=== PATIENT | male | born 2005 | race Caucasian/White ===

== ENCOUNTER 2024-02-27 09:21 | Emergency (ER) | payer BC, SELFPAY ==
--- NOTE | ~2024-02-27 | XR_ITS ---
EXAMINATION: XR LUMBOSACRAL SPINE CLINICAL INFORMATION: Left lower back pain status post heavy lifting COMPARISON: Lumbar spine radiograph from 11/15/2018 TECHNIQUE: Three views of the lumbosacral spine. FINDINGS: 5 nonrib-bearing lumbar-type vertebral bodies. No acute visible fracture or dislocation. Vertebral body heights and disc spaces are maintained. Posterior elements are intact. Paraspinal soft tissues are unremarkable. Visualized bowel gas is unremarkable. XR/XR lumbar spine 2-3V IMPRESSION: No acute visible fracture or dislocation. Electronically signed by: Fani Winters MD 02/27/2024 12:00 PM EDT
[2024-02-27 09:29] VITALS: BP 116/69; PULSE 72; RESP 18; TEMP 36.8; O2SAT 100; BMI 20.2
--- OUTSIDE RECORDS SUMMARY | 2024-02-27 09:39 | XMS_ITS | Continuity of Care Document ---
Author Organization [facility] Address [address] [place] [address]- Care Team Providers Care Director Of Content Marketing Name Role Phone Grayson Sarah MD Primary Care Physician Encounter [facility] [place] Date(s): 02/27/20 - 04/17/20 [facility] [address] [place] [id number] Attending Physician: Zuhair MIDDLETON, Esra Admitting Physician: Zuhair MIDDLETON, Esra Allergies, Adverse Reactions, Alerts Substance Reaction Severity Status amoxicillin Active chloral hydrate Active shellfish Active Reglan vomiting Active Contrast Dye Active Dust Active Immunizations Given and Recorded Vaccine Date Status Refusal Reason influenza virus vaccine, inactivated 1 04/11/13 Gi esteban influenza virus vaccine, inactivated 2 03/05/12 Gi esteban 1Admin Note: vis given 01/19/10 2Admin Note: vis given 01/19/10 Medications Aerochamber See Instructions, # 1 each, Maintenance, use with inhalers, 07/29/19 15:16:00 EST, Compound, 171.8,cm, 07/29/19 14:09:00 EST, Height, 57.9, kg, 07/29/19 14:09:00 EST, Dry Weight Start Date: 07/29/19 Status: Ordered Aerochamber See Instructions, # 1 each, Refills 1, Tot. Refills 1, use with inhalers, 05/11/09 16:16:30, [facility] [address] Start Date: 05/11/09 Status: Ordered albuterol 0.083% inhalation solution 3 mL, Neb, Every 4 hours, PRN as needed for wheezing and coughing, # 75 each, 1 Refills, Maintenance Start Date: 07/15/10 Status: Ordered cholecalciferol 2000 intl units oral tablet 1 tablet = 2,000 International_Units, By Mouth, Daily, Vit. D supplement. Take with with food., # 30 tablet, 3 Refills, Maintenance, 10/13/14 10:42:01, 1 tablet By Mouth Daily,Instr:Vit. D supplement. Take with with food. Start Date: 10/13/14 Status: Ordered Combivent Respimat CFC free 20 mcg-100 mcg/inh inhalation aerosol 2-6 puffs, Inhalation, Every 4 hours, PRN Cough, # 1 each, 2 Refills, Maintenance, 07/03/17 8:49:00, Aerosol, 2-6 puffs Inhalation Every 4 hours,PRN:Cough Start Date: 07/03/17 Status: Ordered Flonase 50 mcg/inh nasal spray 1 sprays, Nares, Both, 2 times a day, # 16 Gm, 2 Refills, Maintenance, 07/03/17 8:49:00, [place], 1 sprays Nares, Both 2 times a day Start Date: 07/03/17 Status: Ordered Flovent HFA 44 mcg/inh inhalation aerosol 2 puffs, Inhalation, 2 times a day, use with spacer chamber rinse mouth and throat after use, # 11 Gm, 3 Refills, Maintenance, 01/22/18 10:45:00 EDT, Aerosol Start Date: 01/22/18 Status: Ordered loratadine 10 mg oral tablet 10 mg, 1, tablet, By Mouth, Daily, # 30 tablet, Refills 2, Tot. Refills 2, Maintenance, 07/03/17 8:49:00, Route to Pharmacy Electronically, [id number], [facility]/pharmacy #[id number] Start Date: 07/03/17 Status: Ordered Magic mouthwash Magic mouthwash, See Instructions, PRN Cough, # 300 mL, Refills 0, Tot. Refills 0, Maintenance, Gargle and spit 10 mls 4 times daily, 06/22/17 10:02:00, Mix equal parts mylanta, benadryl and 1% lidocaine, Compound Start Date: 06/22/17 Status: Ordered ProAir HFA 90 mcg/inh inhalation aerosol with adapter 2 puffs, Inhalation, 4 times a day, PRN Wheezing/Shortness of Breath, use with spacer chamber as directed 15 minutes before exercise, # 1 each, 2 Refills, Maintenance, 04/17/14 14:50:18, Aerosol, 2 puffs Inhalation 4 times a day,PRN:Wheezing/Shortnes... Start Date: 04/17/14 Status: Ordered Symbicort 80mcg/4.5mcg Inhaler 2, puffs, Inhalation, 2 times a day, # 1 each, Refills 2, Tot. Refills 2, Maintenance, 07/29/19 15:15:00 EST, Aerosol, Route to Pharmacy Electronically, [id number], [facility]/pharmacy #[id number], 171.8, cm, 07/29/19 14:09:00 EST, Height... Start Date: 07/29/19 Status: Ordered Vitamin D3 400 intl units oral capsule 1 capsule = 400 International_Units, By Mouth, Daily, # 30 capsule, 3 Refills, Maintenance, 08/16/17 9:14:00 Start Date: 08/16/17 Status: Ordered Problem List Condition Effective Dates Status Health Status Inform ant CFTR-related metabolic syndr ome (CRMS)(Confirmed) Active Cough(Confirmed) Active Gastro-esophageal reflux disease(Confirmed) Active Generalized abdominal pain(Confirmed) Active Tremor(Confirmed) Active Social History Social History Type Response Smoking Status Never smoker; Tobacc o user in household: No entered on: 07/03/17 Sex
--- OUTSIDE RECORDS SUMMARY | 2024-02-27 09:39 | XMS_ITS | Continuity of Care Document ---
Author Organization [facility] Address [address] [place] [address]- Care Team Providers Care Desizing Machine Operator Head End Name Role Phone Grayson Sarah MD Primary Care Physician Encounter [facility] Date(s): 07/29/19 - 07/29/[address] [address]- [facility] Attending Physician: Not on Staff, Attending MD Allergies, Adverse Reactions, Alerts Substance Reaction Severity [...] 16 Gm, 2 Refills, Maintenance, 07/03/17 8:49:00, [place], 1 sprays Nares, Both 2 times a [...] Maintenance, 07/03/17 8:49:00, Route to Pharmacy Electronically, [id number], [facility]/pharmacy #[id number] Start Date: 07/03/17 Status: Ordered Magic [...] 15:15:00 EST, Aerosol, Route to Pharmacy Electronically, [id number], [facility]/pharmacy #[id number], 171.8, cm, 07/29/19 14:09:00 EST, Height... [...]
--- OUTSIDE RECORDS SUMMARY | 2024-02-27 09:39 | XMS_ITS | Continuity of Care Document ---
Author Organization [facility] Address [address] [place] [address]- Care Team Providers Care Director Of Sports Medicine Name Role Phone Grayson Sarah MD Primary Care Physician Encounter [facility] Date(s): 09/17/20 - 10/17/20 [facility] [address] [place] [address]- Allergies, Adverse Reactions, Alerts Substance Reaction Severity [...] Medications Aerochamber See Instructions, # 1 each, Refills 1, Tot. Refills 1, use with inhalers, 05/11/09 16:16:30, [facility] Start Date: 05/11/09 Status: Ordered Aerochamber See Instructions, # 1 each, Maintenance, use with inhalers, 07/29/19 15:16:00 EST, Compound, 171.8,cm, 07/29/19 14:09:00 EST, Height, 57.9, kg, 07/29/19 14:09:00 EST, Dry Weight Start Date: 07/29/19 Status: Ordered albuterol 0.083% inhalation solution 3 [...] 16 Gm, 2 Refills, Maintenance, 07/03/17 8:49:00, [place], 1 sprays Nares, Both 2 times a [...] Maintenance, 07/03/17 8:49:00, Route to Pharmacy Electronically, [id number], [facility]/pharmacy #[id number] Start Date: 07/03/17 Status: Ordered Magic mouthwash [...] 15:15:00 EST, Aerosol, Route to Pharmacy Electronically, [id number], [facility]/pharmacy #[id number], 171.8, cm, 07/29/19 14:09:00 EST, Height... [...]
--- OUTSIDE RECORDS SUMMARY | 2024-02-27 09:39 | XMS_ITS | Continuity of Care Document ---
Author Organization [facility] Address [address] [place] [address]- Care Team Providers Care Home Theater Installer Name Role Phone Grayson Sarah MD Primary Care Physician Encounter [facility] Date(s): 09/29/20 - 01/27/21 [facility] [address] [place] [address]- Attending Physician: Dakota Fofana MD Admitting Physician: Dakota Fofana MD Allergies, Adverse Reactions, Alerts Substance Reaction [...] 16 Gm, 2 Refills, Maintenance, 07/03/17 8:49:00, [place], 1 sprays Nares, Both 2 times a [...] Maintenance, 07/03/17 8:49:00, Route to Pharmacy Electronically, [id number], [facility]/pharmacy #[id number] Start Date: 07/03/17 Status: Ordered Magic [...] 15:15:00 EST, Aerosol, Route to Pharmacy Electronically, [id number], [facility]/pharmacy #[id number], 171.8, cm, 07/29/19 14:09:00 EST, Height... [...]
--- OUTSIDE RECORDS SUMMARY | 2024-02-27 09:39 | XMS_ITS | Continuity of Care Document ---
Author Organization [facility] Address [address] [place] [address]- Care Team Providers Care Bottle Feeder Name Role Phone Grayson Sarah MD Primary Care Physician Encounter [facility] [place] Date(s): 11/07/19 - 11/14/19 [facility] [address] [place] [address]- [facility] Attending Physician: Zuhair MIDDLETON, Esra Allergies, Adverse Reactions, [...] 16 Gm, 2 Refills, Maintenance, 07/03/17 8:49:00, [place], 1 sprays Nares, Both 2 times a [...] Maintenance, 07/03/17 8:49:00, Route to Pharmacy Electronically, [id number], [facility]/pharmacy #[id number] Start Date: 07/03/17 Status: Ordered Magic [...] 15:15:00 EST, Aerosol, Route to Pharmacy Electronically, [id number], [facility]/pharmacy #[id number], 171.8, cm, 07/29/19 14:09:00 EST, Height... [...]
--- OUTSIDE RECORDS SUMMARY | 2024-02-27 09:39 | XMS_ITS | Continuity of Care Document ---
Author Organization [facility] Address [address] [place] [address]- Care Team Providers Care Flexo Press Operator Name Role Phone Grayson Sarah MD Primary Care Physician [place] [facility] [place] - 08/05/19 [facility] [address] [place] [address] [facility] Attending Physician: Not on Staff, Attending MD Referring Physician: Grayson Sarah MD Allergies, Adverse Reactions, Alerts Substance Reaction [...] 16 Gm, 2 Refills, Maintenance, 07/03/17 8:49:00, [place], 1 sprays Nares, Both 2 times a [...] Maintenance, 07/03/17 8:49:00, Route to Pharmacy Electronically, [id number], [facility]/pharmacy #[id number] Start Date: 07/03/17 Status: [...] 15:15:00 EST, Aerosol, Route to Pharmacy Electronically, [id number], [facility]/pharmacy #[id number], 171.8, cm, 07/29/19 14:09:00 [...] Active Generalized abdominal pain(Confirmed) Active Tremor(Confirmed) Active Vital Signs Most recent to oldest [Reference Range]: 1 Height 171.8 cm (07/29/19 2:09 PM) Weight 57.9 kg (07/29/19 2:09 PM) Oxygen Saturation [94-100 %] 99 % (07/29/19 2:09 PM) Pulse Rate [55-90 bpm] 77 bpm (07/29/19 2:09 PM) Body Mass Index [18.5-24.99] 19.62 (07/29/19 2:09 PM) Blood Pressure [80-130/50-80 mm Hg] 133/ 69mm Hg *H* (07/29/19 2:09 PM) Respiratory Rate [16-30 br/min] 16 br/mi n (07/29/19 2:09 PM) Temperature [96.8-100.4 DegF] 98.4 DegF (07/29/19 2:09 PM) Mode of Delivery (Oxygen) Room air (2/17/20 2:09 PM) Blood pressure sites Arm, right (07/29/19 2:09 PM) Temperature Route Temporal (07/29/19 2:09 PM) Dry Weight 57.9 kg (07/29/19 2:09 PM) Social History Social History Type Response Smoking Status Never smoker; Tobacc o user in household: No entered on: 07/03/17 Sex
--- OUTSIDE RECORDS SUMMARY | 2024-02-27 09:39 | XMS_ITS | Continuity of Care Document ---
Author Organization [facility] Address [address] [place] [address]- Care Team Providers Care Bead Machine Operator Name Role Phone Grayson Sarah MD Primary Care Physician [phone] Encounter [facility] [place] Date(s): 03/15/21 - 04/14/21 [facility] Medicine [address] [place] [address]- Attending Physician: Yohan Anna Admitting Physician: AdmtrYohan Referring Physician: Admtr, Ar8 Allergies, Adverse Reactions, Alerts Substance Reaction Severity [...] 16 Gm, 2 Refills, Maintenance, 07/03/17 8:49:00, [place], 1 sprays Nares, Both 2 times a [...] Maintenance, 07/03/17 8:49:00, Route to Pharmacy Electronically, [id number], [facility]/pharmacy #[id number] Start Date: 07/03/17 Status: [...] 15:15:00 EST, Aerosol, Route to Pharmacy Electronically, [id number], [facility]/pharmacy #[id number], 171.8, cm, 07/29/19 14:09:00 [...]
--- OUTSIDE RECORDS SUMMARY | 2024-02-27 09:39 | XMS_ITS | Continuity of Care Document ---
Author Organization [facility] Address [address] [place] [address]- Care Team Providers Care Well Drill Operator Name Role Phone Grayson Sarah MD Primary Care Physician Encounter [facility] [place] Date(s): 11/07/19 - 02/28/20 [facility] [address] [place] [address]- [facility] Attending Physician: Zuhair MIDDLETON, Esra Allergies, Adverse [...] 16 Gm, 2 Refills, Maintenance, 07/03/17 8:49:00, [place], 1 sprays Nares, Both 2 times a [...] Maintenance, 07/03/17 8:49:00, Route to Pharmacy Electronically, [id number], [facility]/pharmacy #[id number] Start Date: 07/03/17 [...] 15:15:00 EST, Aerosol, Route to Pharmacy Electronically, [id number], [facility]/pharmacy #[id number], 171.8, cm, 07/29/19 [...]
--- OUTSIDE RECORDS SUMMARY | 2024-02-27 09:39 | XMS_ITS | Continuity of Care Document ---
Author Organization [facility] Address [address] [place] [address]- Care Team Providers Care Account Retention Representative Name Role Phone Grayson Sarah MD Primary Care Physician [place] [facility] [place] 04/14/21 [facility] [address] [place] [address]- Attending Physician: Brenda Torres RD Admitting Physician: Brenda Torres RD Allergies, Adverse Reactions, Alerts Substance Reaction Severity [...] 16 Gm, 2 Refills, Maintenance, 07/03/17 8:49:00, [place], 1 sprays Nares, Both 2 times a [...] Maintenance, 07/03/17 8:49:00, Route to Pharmacy Electronically, [id number], [facility]/pharmacy #[id number] Start Date: 07/03/17 Status: Ordered [...] 15:15:00 EST, Aerosol, Route to Pharmacy Electronically, [id number], [facility]/pharmacy #[id number], 171.8, cm, 07/29/19 14:09:00 EST, [...]
--- OUTSIDE RECORDS SUMMARY | 2024-02-27 09:39 | XMS_ITS | Continuity of Care Document ---
Author Organization [facility] Address [address] [place] [address]- Care Team Providers Care Extrusion Utility Worker Name Role Phone Grayson Sarah MD Primary Care Physician [phone] [place] [facility] [place]14/21 [facility] [address] [place] [address]- Attending Physician: Dakota Fofana MD Admitting Physician: [...] 16 Gm, 2 Refills, Maintenance, 07/03/17 8:49:00, [place], 1 sprays Nares, Both 2 times a [...] Maintenance, 07/03/17 8:49:00, Route to Pharmacy Electronically, [id number], [facility]/pharmacy #[id number] Start Date: 07/03/17 Status: Ordered Magic [...] 15:15:00 EST, Aerosol, Route to Pharmacy Electronically, [id number], [facility]/pharmacy #[id number], 171.8, cm, 07/29/19 14:09:00 EST, Height... [...]
--- OUTSIDE RECORDS SUMMARY | 2024-02-27 09:39 | XMS_ITS | Continuity of Care Document ---
Author Organization [facility] Address [address] [place] [address]- Care Team Providers Care Professor In Family Studies Name Role Phone Grayson Sarah MD Primary Care Physician Encounter [facility] [place] Date(s): 02/26/20 - 03/04/20 [facility] [address] [place] [address]- [facility] Attending Physician: Zuhair MIDDLETON, Esra Allergies, Adverse [...] 16 Gm, 2 Refills, Maintenance, 07/03/17 8:49:00, [place], 1 sprays Nares, Both 2 times a [...] Maintenance, 07/03/17 8:49:00, Route to Pharmacy Electronically, [id number], [facility]/pharmacy #[id number] Start Date: 07/03/17 Status: Ordered Magic [...] 15:15:00 EST, Aerosol, Route to Pharmacy Electronically, [id number], [facility]/pharmacy #[id number], 171.8, cm, 07/29/19 [...] oldest [Reference Range]: 1 Height 171.8 cm (02/25/20 2:18 PM) Weight 57.9 kg (02/25/20 2:18 PM) Body Mass Index [18.5-24.99] 19.62 (02/25/20 2:18 PM) Dry Weight 57.9 kg (02/25/20 2:18 PM) Social History Social History Type Response Smoking Status Never smoker; Tobacc o user in household: No entered on: 07/03/17 Sex
--- OUTSIDE RECORDS SUMMARY | 2024-02-27 09:39 | XMS_ITS | Continuity of Care Document ---
Author Organization [facility] Address [address] [place] [address]- Care Team Providers Care Drafter Electronic Name Role Phone Grayson Sarah MD Primary Care Physician [phone] [place] [facility] [place](s): 03/15/21 - 04/14/21 [facility] [address] [place] [address]- Attending Physician: Yohan Anna Admitting Physician: AdmtrYohan [...] 16 Gm, 2 Refills, Maintenance, 07/03/17 8:49:00, [place], 1 sprays Nares, Both 2 times a [...] Maintenance, 07/03/17 8:49:00, Route to Pharmacy Electronically, [id number], [facility]/pharmacy #[id number] Start Date: 07/03/17 Status: [...] 15:15:00 EST, Aerosol, Route to Pharmacy Electronically, [id number], [facility]/pharmacy #[id number], 171.8, cm, 07/29/19 14:09:00 [...]
--- NOTE | 2024-02-27 09:41 | ED_ITS ---
HPI - Back Pain/Injury General Chief Complaint: Back Pain/Injury Stated Complaint: Lower back pain Time Seen by Provider: 02/27/24 09:34 Source: patient and family (mom) Mode of arrival: ambulatory Limitations: no limitations History of Present Illness ED Provider: CAROLYN CHRISTOPHER PA-C HPI Narrative: 18 year old male presents to the ED today with mom for evaluation of left lower back pain x7 days. He reports that while working on/ lifting a heavy motor he may have tweaked his lower back. At the time he did not feel pain however over the next couple of days began to have pain in his left lower back, worse with sitting while driving. Pain occasionally radiates into his left hip/ buttock. He has been taking Motrin at home with little relief. Last dose yesterday. No other blunt injury/ trauma/ fall. Denies IV drug use. Denies fever, chills, neck pain, bowel or bladder incontinence or retention, numbness/tingling/weakness in the lower extremities, dysuria, hematuria, saddle anesthesia. Related Data Previous Rx's ?Medication ?Instructions ?Recorded cyclobenzaprine 5 mg tablet 5 mg PO Q8H #7 tabs 02/27/24 lidocaine 5 % topical patch 1 patch topical DAILY #15 ea 02/27/24 (Lidoderm) Allergies Allergy/AdvReac Type Severity Reaction Status Date / Time amoxicillin Allergy Unknown Rash Verified 02/27/24 09:30 metoclopramide [Reglan] Allergy Unknown Rash Verified 02/27/24 09:30 shellfish Allergy Unknown Anaphylaxis Uncoded 02/27/24 09:29 Review of Systems Review of Systems: Constitutional: No fever, chills, fatigue, night sweats, weight changes ENT/Mouth: No ear pain, hearing loss, nasal congestion, sinus pain, rhinorrhea, sore throat Eyes: No eye pain, swelling, redness, vision changes, discharge Cardio: No chest pain, palpitations, TOSCANO, orthopnea, peripheral edema Pulm: No SOB, cough, sputum, wheezing, dyspnea, hemoptysis GI: No nausea, vomiting, hematemesis, abdominal pain, diarrhea, constipation, hematochezia, melena : No irregular bleeding, dysuria, frequency, urgency, hesitancy, hematuria, flank pain, urinary flow changes, urinary incontinence or retention MSK: +back pain, No neck pain, joint pain, myalgias Skin: No lesions, rashes Neuro: No weakness, numbness, paresthesias, LOC, dizziness, headache All other systems reviewed and are negative. [facility] Past Medical History Attestation statement: The following information was validated with the patient. Source: old records reviewed and nursing notes reviewed Social History Social History Advance Directives: No Advance Directives Information Provided: No Physical Exam Vital Signs: Vital Signs: Last Vital Signs Temp 97.7 F 02/27/24 10:32 Pulse 62 02/27/24 10:32 Resp 16 02/27/24 10:32 BP 114/74 02/27/24 10:32 Pulse Ox 98 02/27/24 10:32 O2 Del Method Room Air 02/27/24 10:32 BMI result Body Mass Index 20.2 Vital signs stable, afebrile. General: Well appearing, in no acute distress. Skin: Warm, dry, intact. No rashes or lesions. Head: Normocephalic, atraumatic. EENT: Hearing is intact b/l. Conjunctiva clear. Sclera is anicteric. PERRLA. EOM intact. Moist mucous membranes.? Cardiac: Chest wall symmetric. RRR. No MRG. No JVD. Lungs: Normal respiratory effort without accessory muscle use. CTA bilaterally. No rales, rhonchi, or wheezes.? Back: No midline spinous or paraspinal tenderness. No step off deformity. +left lumbar paraspinal mm tenderness w/o spasm, deformity, mass Ext: Upper and lower extremities atraumatic, without tenderness, deformity, swelling or erythema. Full ROM throughout. Strength 5/5 throughout. Pulses 2+ eq ual and bilateral. Neuro: AOx3. Normal speech. CN 2-12 grossly intact. Strength 5/5 intact throughout. No saddle anesthesia. Sensation intact to light touch. NV intact distally. Patellar DTRs 2+ bilaterally. Ambulating with steady gait. Psych: Appropriate mood and affect. Responds appropriately to questions. Course Course Course Narrative: 1210 -- lumbar xr unremarkable. no evidence of fracture. on my re-evaluation, patient reports improvement in pain with flexeril, lido patch and toradol. suspicion for muscle strain. will send meds to pharmacy for treatment. Patient provided with work note. He has remained stable throughout ED visit today. Discussed worrisome signs and symptoms and when to return to the ED. All questions answered at this time. Patient is agreeable with disposition and stable for discharge. Medications Administered Discontinued Medications Generic Name Dose Route Start Last Admin Trade Name Ibis PRN Reason Stop Dose Admin Cyclobenzaprine HCl 5 mg 02/27/24 10:04 02/27/24 10:13 Cyclobenzaprine Hcl 5 Mg Tablet PO 02/27/24 10:05 5 mg ONCE ONE Administration Ketorolac Tromethamine 15 mg 02/27/24 10:04 02/27/24 10:13 Ketorolac Tromethamine 15 Mg/Ml Vial IM 02/27/24 10:05 15 mg ONCE ONE Administration Lidocaine 1 patch 02/27/24 10:02/27/24 10:13 Lidocaine 4 % Patch Adh..Patch TRANSDERMA 02/27/24 10:05 1 patch ONCE ONE Administration Protocol Medical Decision Making Medical Decision Making MDM Narrative: 18 year old male presents to the ED today with mom for evaluation of left lower back pain x7 days. Vital signs stable. Afebrile. He is nontoxic appearing and in NAD. On exam, there is no midline spinous tenderness or step off deformity. There is left lumbar paraspinal muscle tenderness without palpable spasm, mass, deformity. Ambulating with steady gait. NV intact distally. Differential diagnosis includes muscle spasm, MSK sprain/strain, fracture, subluxation, disc herniation, sciatica. Presentation not consistent with cord compression, cauda equina, Guillain-[place], epidural abscess. Plan for imaging, pain control and re-evaluation. Differential Diagnosis Differential Diagnoses: The differential diagnosis associated with the presentat ion includes as above Admission/Observation Not indicated. Independent Interpretation I performed an independent interpretation of an: Plain X-Ray Interpretation: XR lumbar spine without acute fracture, agree with radiologist's interpretation. Radiology Impression Discussion of test interpretation with radiology: I have reviewed the radiologist's reading. Radiologist Impression: EXAMINATION: XR LUMBOSACRAL SPINE CLINICAL INFORMATION: Left lower back pain status post heavy lifting COMPARISON: Lumbar spine radiograph from 11/15/2018 TECHNIQUE: Three views of the lumbosacral spine. FINDINGS: 5 nonrib-bearing lumbar-type vertebral bodies. No acute visible fracture or dislocation. Vertebral body heights and disc spaces are maintained. Posterior elements are intact. Paraspinal soft tissues are unremarkable. Visualized bowel gas is unremarkable. XR/XR lumbar spine 2-3V IMPRESSION: No acute visible fracture or dislocation. Electronically signed by: Fani Winters MD 02/27/2024 12:00 PM EDT RP Workstation: [id number] Independent Historian Clinical information obtained from an independent historian. History obtained from or confirmed by: Parent (mom) External Record Review External record reviewed: Inpatient record Prescription Management I considered prescription management with: Pain Medication (Tylenol, ibuprofen) and Other (Flexeril, lidocaine patch) Social Determinants Patient?s care significantly limited by Social Determinants of Health including: Other Social Determinant of Health Critical Care Time Critical Care Time Critical Care Time: No Discharge Plan Discharge Clinical Impression: Strain of lumbar region Qualifiers: Encounter type: initial encounter Qualified Code(s): S39.012A - Strain of muscle, fascia and tendon of lower back, initial encounter Patient Disposition: Home, Self-Care Instructions: Muscle Strain (ED), Back Pain (ED), Lower Back Exercises (ED) Additional Instructions: You were evaluated in the Emergency Department today for your back pain.? Your evaluation did not show signs of medical conditions requiring emergent intervention at this time. Avoid bending, lifting, or twisting. Use ice several times per day for 20 minutes at a time for the next 48 hours and then change to heat. We recommend you take 600mg ibuprofen every 6 hours or tylenol 650mg every 6 hours as needed for pain. If needed, you can alternate these medications so that you take one medication every 3 hours. For example, at noon take ibuprofen, then at 3pm take tylenol, then at 6pm take ibuprofen. Flexeril is a muscle relaxer. Take this at night as it makes you drowsy. Do not drive, drink alcohol, or operate machinery while taking it. Lidoderm patches are numbing patches. Apply to painful areas. Please schedule an appointment for follow-up with your primary care provider this week for further evaluation of your symptoms. Return to the Emergency Department if you experience worsening back pain, difficulty walking, fevers, numbness, tingling, incontinence, or any other concerning symptoms. In the case of an emergency call 911. Prescriptions: New cyclobenzaprine 5 mg tablet 5 mg PO Q8H Qty: 7 0RF lidocaine [Lidoderm] 5 % adhesive patch,medicated 1 patch topical DAILY Qty: 15 0RF Rx Instructions: leave on most painful area for up to 12 hrs Referrals: Grayson Sarah MD [Primary Care Provider] - Stand Alone Forms: Work/School Release Print Language: Salvadorean
[2024-02-27] MEDS: Ketorolac Tromethamine 15 MG/ML VIAL IM (10:13)
[2024-02-27] MEDS: Cyclobenzaprine HCl 5 MG TABLET PO (10:13)
[2024-02-27] MEDS: Lidocaine 4 % Patch ADH..PATCH 1 PATCH TRANSDERMA (10:13)
--- NOTE | 2024-02-27 10:16 | PC.NURSE ---
pt medicated per provider order. effectiveness pending. pt waiting for xray to be completed at this time.
--- NOTE | 2024-02-27 10:30 | PC.NURSE ---
pt verbalizes feeling jittery and cold after medication administration. pt seems to be in no apparent distress at this time. vital signs obtained/stable. no signs of respiratory distress including sob/wob noted. respirations even/unlabored. lung sounds CTA. pt denies any itchiness. no hives noted. provider notified/aware.
[2024-02-27 10:32] VITALS: BP 114/74; PULSE 62; RESP 16; TEMP 36.5; O2SAT 98
--- NOTE | 2024-02-27 10:41 | PC.NURSE ---
xray being completed at this time.
[2024-02-27 12:18] VITALS: BP 119/67; PULSE 52; RESP 16; TEMP 36.4; O2SAT 96
[2024-02-27 12:29] VITALS: BP 119/67; PULSE 52; RESP 16; TEMP 36.4; O2SAT 96
== END 2024-02-27 12:29 | disposition home or self-care (01) ==
PROVIDERS: Emergency Provider Emergency Medicine; PCP Pediatrics
DX: S39.012A Strain of muscle, fascia and tendon of lower back, initial encounter (principal); X50.0XXA Overexertion from strenuous movement or load, initial encounter; X50.3XXA Overexertion from repetitive movements, initial encounter; Y93.89 Activity, other specified; Y92.89 Other specified places as the place of occurrence of the external cause; Y99.0 Civilian activity done for income or pay
CPT/HCPCS: 72100; 96372; 99283; 99284; J1885